=== PATIENT | female | born 1985 | race African-American/Black ===

== ENCOUNTER 2024-02-22 11:22 | Emergency (ER) | payer SELFPAY ==
[~2024-02-22] VITALS: Ht 162.6 cm; Wt 65.0 kg
[2024-02-22 11:22] VITALS: O2SAT 94
[2024-02-22 11:25] VITALS: BP 102/68; PULSE 147; RESP 34; TEMP 36.55848; O2SAT 99
[2024-02-22] MEDS ORDERED: LACTATED RINGERS 1,000 ML IV SCH (11:30)
[2024-02-22] MEDS ORDERED: EPINEPHRINE 10 MG in SODIUM CHLORIDE 0.9% 240 ML IV PRN (12:30)
[2024-02-22] MEDS ORDERED: TENECTEPLASE 50MG/VIAL IV ONE (13:00)
[2024-02-22] MEDS ORDERED: IOHEXOL-350 100 ML BOTTLE ONE (15:14)
== END 2024-02-22 14:40 ==
LOC: ER 11:22 → CANBEDREQ 13:05 → ER 14:40
DX: I46.9 Cardiac arrest, cause unspecified (principal); I26.99 Other pulmonary embolism without acute cor pulmonale; Z86.018 Personal history of other benign neoplasm
CPT/HCPCS: 99291; 71275; 92950; 94070; 31500; 82962; 70450; 93005; J3101; Q9967; J3490; J7050